=== PATIENT | female | born 1980 | race Caucasian/White ===

== ENCOUNTER 2018-09-09 09:53 | Inpatient (IN) ==
--- NOTE | 2018-09-09 07:02 | OB/GYN History & Physical ---
Date of Encounter: 09/09/18 Time of Encounter: 06:35 Assessment and Plan (1) 38 weeks gestation of Current visit: Yes Status: Acute Patient presented for precipitous delivery Upon pushing it was noted that the fetus was robin breech Dr Romo called to room to assume care (2) complicated by subutex maintenance, antepartum Current visit: Yes Status: Acute (3) Breech presentation of fetus Current visit: Yes Status: Acute Qualifiers: Fetus number: single or unspecified fetus Qualified Code(s): O32.1XX0 - Maternal care for breech presentation, not applicable or unspecified History of Present Illness Chief complaint: Labor HPI: Ms. Okeefe is a 38 year old at 38 weeks and 0 days that presents to labor and delivery with c/o contractions that began several days ago but worsened this morning around 0500. She states positive movement. She keeps asking for subutex stating she has not had any for a few days and missed her appointment last week. She denies using any other medications or drugs. She has had insufficient care which began at 29 weeks and she has missed the last 2 appointments. Labs: GBS unknown Hep B NR HIV NR RPR NR Rubella Immune Varicella Immune Blood Type A+ Obstetrical History - Pregnancies : 3 Para: 1 Term: 1 : 0 Ab's: 1 Livin Review of System OB All systems PM: reviewed and no additional remarkable complaints except as stated Exam - Constitutional Constitutional: well developed, well nourished, average body habitus, moderate distress, disheveled - HEENT HEENT: Normocephaly, Mucus Membranes Moist - Neck Neck exam: full ROM - Abdomen Abdomen: Present: bowel sounds normal, gravid, non tender - Extremities Extremities exam: normal capillary refill, normal inspection, radial pulses palpable and symmetrical - Vulva Vulva: bilateral: normal - Vagina Vagina: Present: normal moisture - Cervix Dilation: 10 Effacement: 100 Station: +2 - Uterus Uterus exam: Present: normal size - Anus/Rectum Anus/Rectum: Present: normal perianal skin Results All other labs normal.
--- NOTE | 2018-09-09 07:17 | OB/GYN Procedure Note ---
Delivery - Delivery Date: 09/09/18 Provider: Oksana Romo Intrapartum events: meconium Delivery induction: none Anesthesia: none Quantitated Blood Loss: 250 - Repair Episiotomy: none Laceration Description: None - Complications Delivery complications: none Delivery comments: Alicia is a 38 y/o @ 38+0 weeks who presented to L&D in labor and fully dilated, +2 station and delivered via breech a viable male infant @ 0657hrs. Placenta delivered @ 0706hrs. Weight is 2995g (6lbs 10oz), APGARs 8/9. Infant buttocks delivered first, then both feet, before sweeping both arms to the chest, then flexing the head to the chest, I delivered the infant. EBL 250cc. No lacerations. Mother and doing very well. - Disposition Mom disposition: stable in LDR [place] disposition: stable in LDR
[2018-09-09 07:33] LABS: Basophils % 0.3 %; Eosinophils # 0.1 K/mcL (0.0-0.6); Eosinophils % 0.6 %; Hematocrit 37.8 % (35.3-44.9); Hemoglobin 12.1 g/dL (11.5-15.4); Immature Granulocytes % 0.7 % (0-4); Lymphocytes # 2.5 K/mcL (0.6-4.6); Lymphocytes % 16.5 %; Mean Corpuscular Hemoglobin 29.4 pg (28.0-33.3); Mean Platelet Volume 10.5 fL (9.4-12.4); Monocytes # 1.6 K/mcL (0.0-1.3); Monocytes % 10.2 %; Platelet Count 253 K/mcL (140-400); Red Blood Count 4.11 M/mcL (3.82-4.97); Red Cell Distribution Width 13.9 % (11.5-14.5); Segmented Neutrophils % 71.7 %
[2018-09-09 07:55] LABS: Amphetamine Screen,Urine Negative ng/mL (Cutoff=1000); Barbiturate Screen,Urine Negative ng/mL (Cutoff=200); Benzodiazepines Screen,Urine Negative ng/mL (Cutoff=200); Cannabinoid Screen,Urine Negative ng/mL (Cutoff = 50); Cocaine Screen,Urine Positive ng/mL (Cutoff= 300); Opiate Screen,Urine Negative ng/mL (Cutoff=300); Phencyclidine Screen,Urine Negative ng/mL (Cutoff=25)
[2018-09-09 08:12] LABS: Basophils # 0.1 K/mcL (0.0-0.2)
[2018-09-09] MEDS: *HR* Buprenorphine HCl 8 MG TAB.SUBL SL SCH ×2 (08:58→20:13)
[2018-09-09 09:04] LABS: Platelet Estimate Normal (Normal)
[2018-09-09 09:05] LABS: Large Platelets Present (Not Present)
[~2018-09-09 09:53] MED LIST: Acetaminophen 325 MG TABLET PO PRN; Benzocaine/Menthol 56 GM AEROSOL SPRAY TP PRN; Ketorolac 30 MG/ML VIAL IVP STA; Naloxone 0.4 MG/ML INJ IVP PRN; Oxytocin 20 units/ LR 1000 mL 20 UNIT/1,000 ML BAG IVC ONE; Oxytocin 20 units/ LR 1000 mL 20 UNIT/1,000 ML BAG IVC SCH; Ringers Solution, Lactated 1,000 ML IVC SCH
[2018-09-09] MEDS: Ibuprofen 600 MG TABLET PO PRN (15:55)
[2018-09-09] MEDS: Prenatal Vit/FA 1 EACH TABLET PO SCH (19:22)
[2018-09-10] MEDS: Ibuprofen 600 MG TABLET PO PRN (02:08)
[2018-09-10 08:05] VITALS: BP 112/78
--- NOTE | 2018-09-10 10:15 | Discharge Summary ---
Date of Encounter: 09/10/18 Time of Encounter: 10:23 - Discharge Diagnosis (1) Status post vaginal delivery Priority: Primary Status: Acute Comments: Meeting expected milestones. Lochia normal, no large clots noted. Ambulating w ell. Pain well controlled with prescribed pain medications. Passing gas, no bowel movement yet. Complaining of mild abdominal pain, productive cough with yellow sputum, runny nose. Will provide IS and guaifenesin. Contraceptions discussed Depo given prior to discharge. Pt declined Nexplanon Plan for discharge today. (2) Breech delivery Priority: Secondary Status: Acute Comments: No lacerations s/p delivery. EBL 250. Baby at [facility] dt elevated bilirubin and elarged liver. Qualifiers: Fetus number: single or unspecified fetus Qualified Code(s): O32.1XX0 - Maternal care for breech presentation, not applicable or unspecified (3) complicated by subutex maintenance, antepartum Priority: Secondary Status: Acute Comments: Discharge with ibuprofen rx. Patient picked up subutex rx from pharmacy this morning. Patient plans to enroll in treatment program in [place] after discharge. - Discharge Medications Prescriptions: New Ibuprofen [Ibu] 600 mg PO Q6H #60 tablet GuaiFENesin ER [Mucinex] 600 mg PO BID #14 tbbp.12hr Continued Buprenorphine HCl [Subutex] 8 mg SL BID Home Medications: Buprenorphine HCl [Subutex] 8 mg SL BID 09/09/18 [History] Ibuprofen [Ibu] 600 mg PO Q6H #60 tablet 09/09/18 [Rx] GuaiFENesin ER [Mucinex] 600 mg PO BID #14 tbbp.12hr 09/10/18 [Rx] Allergies/Adverse Reactions: Allergy/AdvReac Type Severity Reaction Status Date / Time codeine AdvReac Hives Verified 09/09/18 07:33 Data Procedures and tests throughout hospitalization: Laboratory Tests 09/09/18 09/09/18 09/09/18 07:00 07:25 12:22 WBC 15.4 H RBC 4.11 Hgb 12.1 Hct 37.8 MCV 92.0 MCH 29.4 MCHC 32.0 RDW 13.9 Plt Count 253 MPV 10.5 Immature Gran % 0.7 Seg Neutrophils % 71.7 Lymphocytes % 16.5 Monocytes % 10.2 Eosinophils % 0.6 Basophils % 0.3 Neutrophils # 11.0 H Lymphocytes # 2.5 Monocytes # 1.6 H Eosinophils # 0.1 Basophils # 0.1 Platelet Estimate Normal Large Platelets Present A Volume Blood 0 Urine Opiates Screen Negative Ur Barbiturates Screen Negative Ur Phencyclidine Scrn Negative Ur Amphetamines Screen Negative U Benzodiazepines Scrn Negative Urine Cocaine Screen Positive H U Marijuana (THC) Screen Negative Ur Drug Screen Interp See Below Labs on day of discharge: Labs from last 24 hours 09/09/18 12:22 Volume Blood 0 Date of admission: 09/09/18 09:54 Primary care physician: PCP NONE Consults: 09/09/18 07:08 Consult to Magisterial District Judge [CONS] Routine Comment: Vaginal delivery, consult needed Consult to Respiratory Manager (W&C) [CONS] Stat Reason For Exam: Reason for SW Consult: Subutex use; precip delivery Discharging clinician: Vikki Mccurdy Anticipated date of discharge: 09/10/18 - Patient Status Disposition: Home, Self-Care Condition: Good Functional capacity at discharge: independent ambulation Overall status at discharge: patient is progressing back to baseline - Discharge Instructions Follow Up With: NONE,PCP [Primary Care Provider] - Melba Bearden [Advanced Practice Nurse] - 10/08/18 1:15 pm - Diet and Activity Activity: increase activity as tolerated Diet: advance to your usual diet 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 Hospital course: - Delivery Date: 09/09/18 Provider: Oksana Romo Intrapartum events: meconium Delivery induction: none Anesthesia: none Quantitated Blood Loss: 250 - Repair Episiotomy: none Laceration Description: None - Complications Delivery complications: none Delivery comments: Time Attestation: Total time spent providing and/or coordinating discharge services: Exam - Constitutional Vitals: Temp Pulse Resp BP Pulse Ox 97.6 F 86 16 112/78 97 09/10/18 08:04 09/10/18 08:04 09/10/18 08:04 09/10/18 08:04 09/10/18 08:04 General appearance IM: A&O X 3 - Respiratory Respiratory exam: Present: CTAB, wheezes (mild wheezing anteriorly on the left) - Cardiovascular Cardiovascular exam IM: Present: RRR, +S1, +S2. Absent: diastolic murmur, systo lic murmur - GI/Abdominal GI/Abdominal exam IM: normal bowel sounds, soft - Uterine Tone: Firm Uterus Position: 2 Fingers Below Umbilicus - Extremities Exam Extremities exam IM: Absent: calf tenderness, pedal edema - Neurological Exam Neurological exam: no focal deficits - Psychiatric Additional comments: Tearful when discussing drug abuse and baby, desires rehab treatment, appropriate for situation - VTE Reasons for not Prescribing Prophylaxis: Treatment not Indicated - Low risk for VTE
[2018-09-10] MEDS: Prenatal Vit/FA 1 EACH TABLET PO SCH (10:18)
[2018-09-10] MEDS: *HR* Buprenorphine HCl 8 MG TAB.SUBL SL SCH (10:19)
[2018-09-10] MEDS ORDERED: Etonogestrel 68 MG IMPLANT IL ONE (10:25)
== END 2018-09-10 15:26 | disposition home or self-care (01) | DRG 560 ==
LOC: 1NENULAB → 1NENUOBS 09:53
PROVIDERS: ADMIT Advanced Practice Midwife; ATTEND Advanced Practice Midwife